=== PATIENT | female | born 1970 | race Caucasian/White ===

== ENCOUNTER 2017-10-06 11:47 | Inpatient (IN) ==
[2017-10-06] MEDS ORDERED: Sod Chloride 0.9% Inj 1,000 ML IV.SIG ONE (12:19)
[2017-10-06] MEDS ORDERED: Ketorolac Inj 30 MG/ML (IVP) Vial IV.PUSH ONE (12:19)
[2017-10-06] MEDS ORDERED: Morphine Inj 4 MG/ML Vial IV.PUSH ONE ×2 (12:19→15:36)
--- NOTE | 2017-10-06 13:19 | ED ---
HPI General Chief Complaint: Abdominal Pain Stated Complaint: Time Seen by Provider: 10/06/17 12:10 Source: patient Mode of arrival: ambulatory Limitations: no limitations History of Present Illness HPI narrative: 46-year-old female with a history of kidney stones and hepatitis C presents emergency department for evaluation of severe left flank pain that increased last night. She says that she went to [facility] yesterday and diagnosed with pyelonephritis and discharged with Keflex. She says that this episode of pain began several days ago. She states that she took her Keflex this morning and thought that the pain would go away but has only worsened. Says currently her pain is 10/10 and is localized to left lower abdominal region with radiation into the left flank and back. No palliative factors. Says the pain somewhat increases with laying on her right side. Described as dull and aching. Says this is the worst pain she has had from kidney stones. She has had a history of left fifth rib trip C approximately 4 years ago here at [facility]. Says she has had subjective fevers and developed a headache because of the pain. Denies nausea, vomiting or diarrhea. Her last bowel movement was yesterday which was normal. No melena, hematochezia, hematemesis. She does not take medications regularly. She denies other medical issues such as hypertension, cardiac or pulmonary issues. Does not drink alcohol. States she does use tobacco products. complaint: abdominal pain and flank pain Pain Consistency: constant Location: LLQ and L flank Severity: severe Migration to: no migration Relieving factors: nothing Exacerbating factors: movement Treatments prior to arrival: other (None use today. Try Tylenol and Motrin yesterday without relief.) Related Data Home Medications Medication Instructions Recorded Confirmed Keflex 500 mg PO TID 10/06/17 10/06/17 Allergies Allergy/AdvReac Type Severity Reaction Status Date / Time Sulfa (Sulfonamide Allergy Severe HIVES/SOB Verified 10/06/17 12:29 Antibiotics) *MDRO Multi-Drug Resistant Allergy Unknown Burning Uncoded 10/06/17 12:29 Organism Review of Systems Except as stated in HPI: all other systems reviewed are negative [facility] Medical History Medical History [place] disease (Acute) Hepatitis C (Acute) Kidney calculi (Acute) Tubal ligation status (Acute) Surgical History Surgical History H/O brain surgery (Acute) Family History Family History Mother Family history of acute myocardial infarction Social History Social History Second Hand Smoke Exposure: Yes Smoking Status: Current every day smoker Tobacco Type: Cigarettes How Often Do You Have a Drink Containing Alcohol: Never Recent Travel in [facility] within the Last 8 Weeks: No Recent Out of Country Travel within the Last 8 Weeks: No Substance Abuse Detail Marijuana: Substance Use Status: Active Route Used Substance Abuse: Inhalation Immunization History Tetanus Immunization: >5 Years Hx Influenza Vaccine This Season: No Exam Narrative Exam Narrative: GENERAL: Well-developed well-nourished in moderate distress, writhing about in bed SKIN: Focused skin assessment warm/dry. HEAD: Atraumatic. Normocephalic. EYES: Pupils equal and round. No scleral icterus. No injection or drainage. ENT: No nasal bleeding or discharge. Mucous membranes pink and moist. NECK: Trachea midline. No JVD. CARDIOVASCULAR: Regular rate and rhythm. No murmur appreciated. RESPIRATORY: No accessory muscle use. Clear to auscultation. Breath sounds equal bilaterally. GASTROINTESTINAL: Abdomen soft, mildly tender to palpation in the left flank region, nondistended, no organomegaly noted. No CVA tenderness. Normoactive bowel sounds. No rebound tenderness MUSCULOSKELETAL: No obvious deformities. No clubbing. No cyanosis. No edema. Homans sign negative bilaterally NEUROLOGICAL: Awake and alert. No obvious cranial nerve deficits. Motor grossly within normal limits. Normal speech. PSYCHIATRIC: Appropriate mood and affect; insight and judgment normal. Course Initial Documented Vital Signs Temperature 99.9 F H 10/06/17 11:50 Pulse Rate 115 H 10/06/17 11:50 Respiratory Rate 16 10/06/17 11:50 Blood Pressure 143/97 H 10/06/17 11:50 Pulse Oximetry 96 10/06/17 11:50 Last Documented Vital Signs Temperature 98.7 F 10/07/17 00:10 Pulse Rate 80 10/07/17 04:00 Respiratory Rate 18 10/07/17 00:10 Blood Pressure 111/59 L 10/07/17 00:10 Pulse Oximetry 98 10/07/17 00:10 Medical Decision Making MDM Narrative Medical decision making narrative: 46-year-old female with a history of kidney stones and hepatitis C presents emergency department for evaluation of left sided abdominal pain that worsened last night. Patient says that she was treated yesterday for presumed hydronephrosis or pyelonephritis and is taking 2 doses of medication. Says last night the pain worsened and believes the worst pain she has had regarding her kidney stones. Her vital signs demonstrated tachycardia with mildly elevated temperature. Patient was in acute pain and indicated pain in the left abdominal area. Labs and imaging studies ordered. Toradol and morphine administered for pain. Her pain decreased to 5/10 with this medication. Her labs are significant for leukocytosis of 24.4 with a left shift, urine consistent with urinary tract infection versus nephrolithiasis. CT shows "there is some minimal induration of the fat in the left perinephric space without evidence of calcified stones or hydronephrosis. Otherwise negative CT abdomen pelvis with contrast." Patient does not have a primary care physician and does not have insurance. I am concerned about follow-up for her. There may be the beginning of worsening pyelonephritis. Additional dose of morphine administered for pain control. Rocephin administered. I spoke with Dr. Brenner who agreed to the admission. Differential Diagnosis Differential Diagnosis: Pyelonephritis, nephrolithiasis, hydronephrosis Lab Data Result diagrams: 10/06/17 12:50 10/06/17 12:50 Lab Results 10/06/17 10/06/17 10/06/17 Range/Units 12:50 12:50 13:45 WBC 24.4 H (4.0-11.0) th/mm3 RBC 4.42 (4.00-5.30) mil/mm3 Hgb 15.5 H (11.6-15.3) gm/dL Hct 44.1 (35.0-46.0) % MCV 99.6 (80.0-100.0) fL MCH 35.1 H (27.0-34.0) pg MCHC 35.2 (32.0-36.0) % RDW 13.6 (11.6-17.2) % Plt Count 267 (150-450) th/mm3 MPV 9.8 (7.0-11.0) fL Neut % (Auto) 80.6 H (16.0-70.0) % Lymph % (Auto) 11.1 (9.0-44.0) % [place] % (Auto) 8.0 (0.0-8.0) % Eos % (Auto) 0.1 (0.0-4.0) % Baso % (Auto) 0.2 (0.0-2.0) % Neut # (Auto) 19.7 H (1.8-7.7) th/mm3 Lymph # (Auto) 2.7 (1.0-4.8) th/mm3 [place] # (Auto) 2.0 H (0.0-0.9) th/mm3 Eos # (Auto) 0.0 (0.0-0.4) th/mm3 Baso # (Auto) 0.0 (0.0-0.2) th/mm3 WBC Differential . Differential Comment Auto diff final Sodium 136 (136-145) meq/L Potassium 4.2 (3.5-5.1) meq/L Chloride 106 (98-107) meq/L Carbon Dioxide 23.6 (21.0-32.0) meq/L Anion Gap 6 (5-15) meq/L BUN 11 (7-18) mg/dL Creatinine 0.97 (0.50-1.00) mg/dL Estimated GFR 62 L (>89) mL/min Random Glucose 92 (74-106) mg/dL Lactic Acid (0.4-2.0) mmol/L Calcium 9.3 (8.5-10.1) mg/dL Total Bilirubin 0.9 (0.2-1.0) mg/dL AST 34 (15-37) U/L ALT 61 H (10-53) U/L Alkaline Phosphatase 98 (45-117) U/L Total Protein 8.5 H (6.4-8.2) g/dL Albumin 3.6 (3.4-5.0) g/dL Lipase 49 L (73-393) U/L Urine Color Yellow (Yellw/Straw) Urine Clarity Cloudy H (Clear) Urine pH 5.0 (5.0-8.5) Ur Specific [place] 1.015 (1.002-1.035) Urine Protein 100 H (Neg-Trace) mg/dL Urine Glucose (UA) Negative (Negative) mg/dL Urine Ketones Trace H (Negative) mg/dL Urine Occult Blood Moderate H (Negative) Urine Nitrate Negative (Negative) Urine Bilirubin Negative (Negative) Urine Urobilinogen 2.0 H (Less than 2) mg/dL Ur Leukocyte Esterase Large H (Negative) Urine RBC 17 H (0-3) /hpf Urine WBC 103 H (0-5) /hpf Ur Squamous Epith Cells 9 (0-5) /hpf Urine Bacteria Occasional H (None) /hpf Urine Mucus Few H (Occasional) /lpf Micro UA Comment Culture indicated Urine Culture Comments Culture indicated 10/06/17 Range/Units 18:20 WBC (4.0-11.0) th/mm3 RBC (4.00-5.30) mil/mm3 Hgb (11.6-15.3) gm/dL Hct (35.0-46.0) % MCV (80.0-100.0) fL MCH (27.0-34.0) pg MCHC (32.0-36.0) % RDW (11.6-17.2) % Plt Count (150-450) th/mm3 MPV (7.0-11.0) fL Neut % (Auto) (16.0-70.0) % Lymph % (Auto) (9.0-44.0) % [place] % (Auto) (0.0-8.0) % Eos % (Auto) (0.0-4.0) % Baso % (Auto) (0.0-2.0) % Neut # (Auto) (1.8-7.7) th/mm3 Lymph # (Auto) (1.0-4.8) th/mm3 [place] # (Auto) (0.0-0.9) th/mm3 Eos # (Auto) (0.0-0.4) th/mm3 Baso # (Auto) (0.0-0.2) th/mm3 WBC Differential Differential Comment Sodium (136-145) meq/L Potassium (3.5-5.1) meq/L Chloride (98-107) meq/L Carbon Dioxide (21.0-32.0) meq/L Anion Gap (5-15) meq/L BUN (7-18) mg/dL Creatinine (0.50-1.00) mg/dL Estimated GFR (>89) mL/min Random Glucose (74-106) mg/dL Lactic Acid 2.0 (0.4-2.0) mmol/L Calcium (8.5-10.1) mg/dL Total Bilirubin (0.2-1.0) mg/dL AST (15-37) U/L ALT (10-53) U/L Alkaline Phosphatase (45-117) U/L Total Protein (6.4-8.2) g/dL Albumin (3.4-5.0) g/dL Lipase (73-393) U/L Urine Color (Yellw/Straw) Urine Clarity (Clear) Urine pH (5.0-8.5) Ur Specific Natalia (1.002-1.035) Urine Protein (Neg-Trace) mg/dL Urine Glucose (UA) (Negative) mg/dL Urine Ketones (Negative) mg/dL Urine Occult Blood (Negative) Urine Nitrate (Negative) Urine Bilirubin (Negative) Urine Urobilinogen (Less than 2) mg/dL Ur Leukocyte Esterase (Negative) Urine RBC (0-3) /hpf Urine WBC (0-5) /hpf Ur Squamous Epith Cells (0-5) /hpf Urine Bacteria (None) /hpf Urine Mucus (Occasional) /lpf Micro UA Comment Urine Culture Comments Imaging Data Radiologist's impression: Abdomen/Pelvis CT 10/06/17 12:19 CONCLUSION: 1. There is some minimal induration of the fat in the left perinephric space without evidence of calcified stones or hydronephrosis. 2. Otherwise negative CT abdomen/pelvis with contrast. Discharge Plan Discharge Disposition Patient Disposition: 30 Still Patient Discharge Condition Condition: Stable Discharge Details Diagnosis: Pyelonephritis, Abdominal pain Physicians Team ED Provider: Naomy Asif ED Midlevel Provider: Ana Tay Primary Care Provider: Primary Care Luly Villarreal Attending Provider: Hu Valerio Status ED Status: Left Department Discharge Information Discharge Date/Time: 10/06/17 17:35
[2017-10-06 13:28] LABS: Baso % (Auto) 0.2 % (0.0-2.0); Eos % (Auto) 0.1 % (0.0-4.0); Hematocrit 44.1 % (35.0-46.0); Hemoglobin 15.5 gm/dL (11.6-15.3); Lymph # (Auto) 2.7 th/mm3 (1.0-4.8); Lymph % (Auto) 11.1 % (9.0-44.0); Mean Corpuscular HGB Conc 35.2 % (32.0-36.0); Mean Corpuscular Hemoglobin 35.1 pg (27.0-34.0); Mean Corpuscular Volume 99.6 fL (80.0-100.0); Mean Platelet Volume 9.8 fL (7.0-11.0); Neut # (Auto) 19.7 th/mm3 (1.8-7.7); Neut % (Auto) 80.6 % (16.0-70.0); Platelet Count 267 th/mm3 (150-450); Red Blood Count 4.42 mil/mm3 (4.00-5.30); Red Cell Distribution Width 13.6 % (11.6-17.2); White Blood Count 24.4 th/mm3 (4.0-11.0)
[2017-10-06 13:50] LABS: Alkaline Phosphatase 98 U/L (45-117); Total Protein 8.5 g/dL (6.4-8.2)
[2017-10-06 14:26] LABS: Alanine Aminotransferase 61 U/L (10-53); Albumin 3.6 g/dL (3.4-5.0); Anion Gap 6 meq/L (5-15); Aspartate Aminotransferase 34 U/L (15-37); Blood Urea Nitrogen 11 mg/dL (7-18); Calcium 9.3 mg/dL (8.5-10.1); Carbon Dioxide 23.6 meq/L (21.0-32.0); Chloride 106 meq/L (98-107); Glomerular Filtration Rate 62 mL/min (>89); Glucose,Random 92 mg/dL (74-106); Lipase 49 U/L (73-393); Potassium 4.2 meq/L (3.5-5.1); Sodium 136 meq/L (136-145)
[2017-10-06 14:35] LABS: Bacteria,Urine Occasional /hpf; Bilirubin,Urine Negative (Negative); Clarity,Urine Cloudy (Clear); Color,Urine Yellow (Yellw/Straw); Glucose,Urine (UA) Negative (Negative); Leukocyte Esterase,Urine Large (Negative); Mucus,Urine Few /lpf (Occasional); Nitrite,Urine Negative (Negative); Specific Gravity,Urine 1.015 (1.002-1.035); Squamous Epithelial Cell,Urine 9 /hpf (0-5)
--- NOTE | 2017-10-06 15:26 | CT ---
EXAM DATE: 10/06/2017 3:21 PM EDT AGE/SEX: 46 years / Female INDICATIONS: Abdominal pain, history of kidney stones. CLINICAL DATA: This is the patient's initial encounter. Patient reports that signs and symptoms have been present for 1 day and indicates a pain score of 6/10. MEDICAL/SURGICAL HISTORY: Hepatitis C. Renal calculi. Anthony disease Tubal ligation. ORAL CONTRAST: No oral contrast ingested. RADIATION DOSE: 8.17 CTDI (mGy) COMPARISON: No prior exams available for comparison. TECHNIQUE: Multiple contiguous axial images were obtained through the abdomen and pelvis following b olus infusion of 95 ml Omnipaque 350 (iohexol) nonionic water-soluble contrast as a single exam dos e. No oral contrast ingested. Using automated exposure control and adjustment of the mA and/or kV ac cording to patient size, radiation dose was kept as low as reasonably achievable to obtain optimal di agnostic quality images. DICOM format image data is available electronically for review and comparis on. FINDINGS: Lower Lungs: Mild basilar atelectasis left lower lung. Liver: The liver has a homogeneous density without space-occupying lesion. There is no dilation of th e biliary tree. No calcified gallstones. Spleen: Homogeneous density without enlargement. Pancreas: Unremarkable without mass or calcification. Kidneys: Normal in size and shape. No evidence of mass or hydronephrosis. 12 mm exophytic cyst midpo le left kidney. No calcified stones in either kidney. There is some minimal induration of the fat in the left perinephric space. Adrenal Glands: Unremarkable. Aorta: The aorta and proximal iliac vessels are grossly unremarkable without aneurysmal dilation. Bowel/Mesentery: The bowel loops are grossly unremarkable. The cecum and sigmoid colon have a normal configuration. Abdominal Wall: Intact. Retroperitoneum: No evidence of adenopathy in the retrocrural, para-aortic, or deep pelvic regions. Bladder: Contours are smooth. No calcifications within the lumen. Reproductive Organs: No abnormal masses or calcifications seen. Inguinal: The inguinal region is unremarkable without evidence of adenopathy. Bony Structures: Unremarkable. CONCLUSION: 1. There is some minimal induration of the fat in the left perinephric space without evidence of or[place] cified stones or hydronephrosis. 2. Otherwise negative CT abdomen/pelvis with contrast. Electronically signed by: Brian Donahue MD 10/06/2017 3:25 PM EDT
[2017-10-06] MEDS ORDERED: Bisacodyl 10 MG Supp RECTAL PRN (16:17)
[2017-10-06] MEDS ORDERED: Naloxone Inj 0.4 MG/ML Vial IV.PUSH PRN (16:19)
[2017-10-06] MEDS ORDERED: Acetaminophen 325 MG Tablet PO PRN (16:19)
--- NOTE | 2017-10-06 17:33 | P.HPIM ---
History of Present Illness Primary Care Physician: No Primary Care Physician Chief Complaint: Left flank pain and dysuria History of Present Illness: 46-year-old white female with a history of nephrolithiasis presents to the emergency room with worsening 2 day history of left flank pain with radiation towards her left lower abdomen along with symptoms of dysuria. She also reports associated chills or fever. Apparently, patient stated that she was seen at [facility] 2 days ago for the similar symptoms and was prescribed outpatient Keflex which she took 3 doses of this. Despite taking the antibiotics she continues to have persistent fevers and chills along with symptoms of worsening left back and flank pain in which she describes as a sharp stabbing pain with a pain intensity of a 10 out of 10. She also reports symptoms of dysuria. She reports also seeing some hematuria and initially had thought this was kidney stones. She has had previous lithotripsies done in the past. She denies any associated nausea or vomiting. She denies any associated chills or fever. She has not had any unusual vaginal discharge Inpatient Certification: I certify that the inpatient services were ordered in accordance with Medicare regulations governing the order. This includes certification that hospital inpatient services are reasonable and necessary and in the case of services not specified as inpatient-only under 42 CFR 419.22(n), that they are appropriately provided as inpatient services in accordance to with the 2-midnight benchmark under 43 CFR 412.3(e) Estimated Total Length of Stay (Days): 2 Plans for Post Hospital Care: Home Review of Systems All other systems reviewed negative except as stated in HPI [facility] - History History Provided By: Patient - Medical History Medical History: Medical History (Last Reviewed 10/06/17 @ 17:24 by Amber Brenner MD) Anthony disease Hepatitis C Kidney calculi Tubal ligation status - Surgical History Surgical History: Surgical History (Last Updated 10/06/17 @ 17:26 by Amber Brenner MD) H/O brain surgery - Family History Family History: Family History (Last Updated 10/06/17 @ 17:27 by Amber Brenner MD) Mother Family history of acute myocardial infarction - Tobacco History Second Hand Smoke Exposure: Yes Tobacco Use In Past 30 Days: Yes Smoking Status: Current every day smoker Tobacco Type: Cigarettes - Alcohol History How Often Do You Have a Drink Containing Alcohol: Never - Substance Use Type Marijuana Status: Active Route Used: Inhalation - Travel History Recent Travel in the [place] Within the Last 8 Weeks: No Recent Travel Out of the Country Within the Last 8 Weeks: No - Immunization History Tetanus Immunization: >5 Years Hx Influenza Vaccine This Season: No Medications and Allergies Active Medications: Active Medications Acetaminophen (Tylenol) 650 mg PO Q6HR PRN PRN Reason: PAIN SCALE 1 TO 2 Hydrocodone Bitart/Acetaminophen ([place] 5/325) 1 tab PO Q4H PRN PRN Reason: PAIN SCALE 3 TO 5 Last Admin: 10/06/17 16:37 Dose: 1 tab Al Hydroxide/Mg Hydroxide (Milk Of Magnesia Liq) 30 ml PO Q12H PRN PRN Reason: Mild Constipation Bisacodyl (Dulcolax Supp) 10 mg RECTAL DAILY PRN PRN Reason: SEVERE CONSITIPATION Lactated Ringer's (Lr 1000 Ml Inj) 1,000 mls @ 100 mls/hr IV.CONT .Q10H JESSIKA Last Admin: 10/06/17 17:05 Dose: 100 mls/hr Ceftriaxone Sodium 1,000 mg/ (Sodium Chloride) 100 mls @ 200 mls/hr IV.SIG Q24H JESSIKA Ketorolac Tromethamine (Toradol Inj) 30 mg IV.PUSH Q6H PRN PRN Reason: PAIN 6-10;IF UNABLE TO TAKE PO Stop: 10/11/17 16:18 Lactulose (Lactulose Liq) 30 ml PO DAILY PRN PRN Reason: SEVERE CONSITIPATION Naloxone HCl (Narcan Inj) 0.4 mg IV.PUSH UNSCH PRN PRN Reason: SEE LABEL COMMENTS Ondansetron HCl (Zofran Inj) 4 mg IV.PUSH Q6H PRN PRN Reason: NAUSEA OR VOMITING Sennosides (Senokot) 17.2 mg PO Q12H PRN PRN Reason: Moderate Constipation Sodium Chloride (Ns Flush) 2 ml IV.FLUSH PRN PRN PRN Reason: FLUSH AFTER USING IV ACCESS Sodium Chloride (Ns Flush) 2 ml IV.FLUSH PRN PRN PRN Reason: FLUSH AFTER USING IV ACCESS Allergies Allergy/AdvReac Type Severity Reaction Status Date / Time Sulfa (Sulfonamide Allergy Severe HIVES/SOB Verified 10/06/17 12:29 Antibiotics) *MDRO Multi-Drug Resistant Allergy Unknown Burning Uncoded 10/06/17 12:29 Organism Home Medications Medication Instructions Recorded Confirmed Type Keflex 500 mg PO TID 10/06/17 10/06/17 History Exam Vital signs: Vital Signs 10/06/17 11:50 10/06/17 16:55 Temperature 99.9 F H Pulse Rate 115 H 138 H Respiratory Rate 16 18 Blood Pressure 143/97 H 132/78 Pulse Oximetry 96 Intake & Output 10/05/17 10/06/17 10/06/17 18:59 06:59 18:59 Intake Total 1000 / 1000 Balance 1000 / 1000 Weight 79.379 kg Intake: IV 1000 / 1000 NS Inj 1,000 ML @ Wide Open IV. 1000 / 1000 SIG BOLUS ONE Rx#:[id number] Narrative: GENERAL: Well-nourished well-developed white female in no acute distress SKIN: Warm and dry. HEAD: Atraumatic. Normocephalic. EYES: Pupils equal and round. No scleral icterus. No injection or drainage. ENT: No nasal bleeding or discharge. Mucous membranes pink and moist. NECK: Trachea midline. No JVD. CARDIOVASCULAR: Regular rate and rhythm. RESPIRATORY: No accessory muscle use. Clear to auscultation. Breath sounds equal bilaterally. GASTROINTESTINAL: Abdomen soft, left flank and lower quadrant tenderness with left CVA tenderness, no rebound or guarding, nondistended. Hepatic and splenic margins not palpable. Normoactive bowel sounds MUSCULOSKELETAL: Extremities without clubbing, cyanosis, or edema. No obvious deformities. NEUROLOGICAL: Awake and alert to person place time and situation. No obvious cranial nerve deficits. Motor grossly within normal limits. Five out of 5 muscle strength in the arms and legs. Normal speech. PSYCHIATRIC: Appropriate mood and affect; insight and judgment normal. Results - Labs CBC & Chem 7: 10/06/17 12:50 10/06/17 12:50 Labs: Short CBC 10/06/17 Range/Units 12:50 WBC 24.4 H (4.0-11.0) th/mm3 Hgb 15.5 H (11.6-15.3) gm/dL Hct 44.1 (35.0-46.0) % Plt Count 267 (150-450) th/mm3 BMP 10/06/17 12:50 Sodium 136 Potassium 4.2 Chloride 106 Carbon Dioxide 23.6 BUN 11 Creatinine 0.97 Calcium 9.3 Liver Function 10/06/17 Range/Units 12:50 Total Bilirubin 0.9 (0.2-1.0) mg/dL AST 34 (15-37) U/L ALT 61 H (10-53) U/L Alkaline Phosphatase 98 (45-117) U/L Albumin 3.6 (3.4-5.0) g/dL Urine 10/06/17 Range/Units 13:45 Urine Color Yellow (Yellw/Straw) Urine Clarity Cloudy H (Clear) Urine pH 5.0 (5.0-8.5) Ur Specific [place] 1.015 (1.002-1.035) Urine Protein 100 H (Neg-Trace) mg/dL Urine Glucose (UA) Negative (Negative) mg/dL - Imaging Impressions Abdomen/Pelvis CT 10/06/17 12:19 CONCLUSION: 1. There is some minimal induration of the fat in the left perinephric space without evidence of calcified stones or hydronephrosis. 2. Otherwise negative CT abdomen/pelvis with contrast. Caprini VTE Risk Assessment Caprini VTE Risk Assessment: No/Low Risk (score <= 1) Caprini Risk Assessment Model: Point Value = 1 Point Value = 2 Point Value = 3 Point Value = 5 Age 41-60 Minor surgery BMI > 25 kg/m2 Swollen legs Varicose veins or History of unexplained or recurrent spontaneous Oral contraceptives or hormone replacement Sepsis (< 1 month) Serious lung disease, including pneumonia (< 1 month) Abnormal pulmonary function Acute myocardial infarction Congestive heart failure (< 1 month) History of inflammatory bowel disease Medical patient at bed rest Age 61-74 Arthroscopic surgery Major open surgery (> 45 min) Laparoscopic surgery (> 45 min) Malignancy Confined to bed (> 72 hours) Immobilizing plaster cast Central venous access Age >= 75 History of VTE Family history of VTE Factor V Leiden Prothrombin [id number] Lupus anticoagulant Anticardiolipin antibodies Elevated serum homocysteine Heparin-induced thrombocytopenia Other congenital or acquired thrombophilia Stroke (< 1 month) Elective arthroplasty Hip, pelvis, or leg fracture Acute spinal cord injury (< 1 month) Prophylaxis Regimen: Total Risk Factor Score Risk Level Prophylaxis Regimen 0-1 Low Early ambulation 2 Moderate Order ONE of the following: *Sequential Compression Device (SCD) *Heparin 5000 units SQ BID 3-4 Higher Order ONE of the following medications: *Heparin 5000 units SQ TID *Enoxaparin/Lovenox 40 mg SQ daily (WT < 150 kg, CrCl > 30 mL/min) *Enoxaparin/Lovenox 30 mg SQ daily (WT < 150 kg, CrCl > 10-29 mL/min) *Enoxaparin/Lovenox 30 mg SQ BID (WT < 150 kg, CrCl > 30 mL/min) AND/OR *Sequential Compression Device (SCD) 5 or more Highest Order ONE of the following medications: *Heparin 5000 units SQ TID (Preferred with Epidurals) *Enoxaparin/Lovenox 40 mg SQ daily (WT < 150 kg, CrCl > 30 mL/min) *Enoxaparin/Lovenox 30 mg SQ daily (WT < 150 kg, CrCl > 10-29 mL/min) *Enoxaparin/Lovenox 30 mg SQ BID (WT < 150 kg, CrCl > 30 mL/min) AND *Sequential Compression Device (SCD) Assessment and Plan - Plan 46-year-old white female with a history of nephrolithiasis presents with 2 day history of worsening left flank and back pain, dysuria, despite being on oral antibiotics. 1. Sepsis present on admission with acute pyelonephritis with failed outpatient antibiotic treatmentpatient presented with leukocytosis and tachycardia, admit the patient for IV fluid hydration supportive care, pain control and IV ceftriaxone and Pyridium. Will obtain blood cultures and lactic acid. Follow-up with final urine cultures and sensitivity 2. DVT prophylaxisNo mechanical or pharmaceutical VTE prophalaxis administered due to patient's low risk assessment of VTE. Encouraged ambulation.
[2017-10-06] MEDS: Ketorolac Inj 30 MG/ML (IVP) Vial IV.PUSH PRN (18:51)
[2017-10-06] MEDS: Morphine Inj 4 MG/ML Vial IV.PUSH PRN (22:04)
[2017-10-07] MEDS: Morphine Inj 4 MG/ML Vial IV.PUSH PRN ×5 (02:24→20:01)
[2017-10-07] MEDS: Ketorolac Inj 30 MG/ML (IVP) Vial IV.PUSH PRN ×3 (08:32→22:47)
[2017-10-07 09:33] LABS: Baso % (Auto) 0.3 % (0.0-2.0); Eos # (Auto) 0.1 th/mm3 (0.0-0.4); Eos % (Auto) 0.7 % (0.0-4.0); Hemoglobin 13.6 gm/dL (11.6-15.3); Lymph # (Auto) 1.6 th/mm3 (1.0-4.8); Lymph % (Auto) 14.1 % (9.0-44.0); Mean Corpuscular HGB Conc 33.9 % (32.0-36.0); Mean Corpuscular Hemoglobin 34.1 pg (27.0-34.0); Mean Corpuscular Volume 100.4 fL (80.0-100.0); Mean Platelet Volume 9.8 fL (7.0-11.0); Mono % (Auto) 8.8 % (0.0-8.0); Neut # (Auto) 8.6 th/mm3 (1.8-7.7); Neut % (Auto) 76.1 % (16.0-70.0); Platelet Count 240 th/mm3 (150-450); Red Blood Count 3.98 mil/mm3 (4.00-5.30); Red Cell Distribution Width 13.3 % (11.6-17.2); White Blood Count 11.3 th/mm3 (4.0-11.0)
[2017-10-07 09:35] LABS: Activated Partial Thrombo Time 27.8 sec (24.3-30.1); Prothrombin Time 9.9 sec (9.8-11.6)
--- NOTE | 2017-10-07 09:52 | P.PNIM ---
Subjective Interval history: Mrs. Colunga was afebrile overnight. She reports worsening abdominal pain which is now severe and radiating to her epigastric area and back. Patient is fearful she may "" due to severity of her pain. Patient states that she has not had pain this severe before but yesterday thought it felt similar to her prior ureteral stones/lithotripsy. Patient denies pain with bowel movements or urination. Her urine was dark in color but now is orange since taking Pyridium Physical Exam Vital signs: Vital Signs 10/06/17 11:50 10/06/17 16:55 10/06/17 17:20 Temperature 99.9 F H Pulse Rate 115 H 138 H Respiratory Rate 16 18 7 L Blood Pressure 143/97 H 132/78 Pulse Oximetry 96 10/06/17 17:52 10/06/17 20:00 10/06/17 20:22 Temperature 98.0 F 99.0 F Pulse Rate 83 88 88 Respiratory Rate 17 17 Blood Pressure 117/60 125/70 Pulse Oximetry 93 L 96 96 10/07/17 00:00 10/07/17 00:10 10/07/17 04:00 Temperature 98.7 F Pulse Rate 79 75 80 Respiratory Rate 18 Blood Pressure 111/59 L Pulse Oximetry 98 10/07/17 08:00 Temperature 99.5 F Pulse Rate 94 H Respiratory Rate 18 Blood Pressure 142/83 H Pulse Oximetry 94 L Intake & Output 10/06/17 10/07/17 10/07/17 18:59 06:59 18:59 Intake Total 1000 / 1000 1780 / 1780 Balance 1000 / 1000 1780 / 1780 Weight 79.379 kg 79 kg Intake: IV 1000 / 1000 1000 / 1000 LR 1000 mL Inj 1,000 ML @ 100 1000 / 1000 mls/hr IV.CONT .Q10H JESSIKA Rx#: [id number] NS Inj 1,000 ML @ Wide Open IV. 1000 / 1000 SIG BOLUS ONE Rx#:[id number] Oral 780 / 780 Other: # Voids 3 Narrative: Gen: anxious, in moderate pain Skin: Sweating CV: Tachycardic; regular rate Resp: CTAB Abd: Pain to palpation of epigastric area and bilateral upper quadrants. Back: L CVA tenderness EXT: Grossly normal ROM and motor function Neuro/PSYCH: Grossly normal CN. Grossly normal peripheral sensory/motor function. anxious Results - Labs CBC & Chem 7: 10/06/17 12:50 10/06/17 12:50 Laboratory Results - last 24 hr 10/06/17 10/06/17 10/06/17 12:50 12:50 13:45 WBC 24.4 H RBC 4.42 Hgb 15.5 H Hct 44.1 MCV 99.6 MCH 35.1 H MCHC 35.2 RDW 13.6 Plt Count 267 MPV 9.8 Neut % (Auto) 80.6 H Lymph % (Auto) 11.1 [place] % (Auto) 8.0 Eos % (Auto) 0.1 Baso % (Auto) 0.2 Neut # (Auto) 19.7 H Lymph # (Auto) 2.7 [place] # (Auto) 2.0 H Eos # (Auto) 0.0 Baso # (Auto) 0.0 WBC Differential . Differential Comment Auto diff final Sodium 136 Potassium 4.2 Chloride 106 Carbon Dioxide 23.6 Anion Gap 6 BUN 11 Creatinine 0.97 Estimated GFR 62 L Random Glucose 92 Lactic Acid Calcium 9.3 Total Bilirubin 0.9 AST 34 ALT 61 H Alkaline Phosphatase 98 Total Protein 8.5 H Albumin 3.6 Lipase 49 L Urine Color Yellow Urine Clarity Cloudy H Urine pH 5.0 Ur Specific [place] 1.015 Urine Protein 100 H Urine Glucose (UA) Negative Urine Ketones Trace H Urine Occult Blood Moderate H Urine Nitrate Negative Urine Bilirubin Negative Urine Urobilinogen 2.0 H Ur Leukocyte Esterase Large H Urine RBC 17 H Urine WBC 103 H Ur Squamous Epith Cells 9 Urine Bacteria Occasional H Urine Mucus Few H Micro UA Comment Culture indicated Urine Culture Comments Culture indicated 10/06/17 18:20 WBC RBC Hgb Hct MCV MCH MCHC RDW Plt Count MPV Neut % (Auto) Lymph % (Auto) [place] % (Auto) Eos % (Auto) Baso % (Auto) Neut # (Auto) Lymph # (Auto) [place] # (Auto) Eos # (Auto) Baso # (Auto) WBC Differential Differential Comment Sodium Potassium Chloride Carbon Dioxide Anion Gap BUN Creatinine Estimated GFR Random Glucose Lactic Acid 2.0 Calcium Total Bilirubin AST ALT Alkaline Phosphatase Total Protein Albumin Lipase Urine Color Urine Clarity Urine pH Ur Specific [place] Urine Protein Urine Glucose (UA) Urine Ketones Urine Occult Blood Urine Nitrate Urine Bilirubin Urine Urobilinogen Ur Leukocyte Esterase Urine RBC Urine WBC Ur Squamous Epith Cells Urine Bacteria Urine Mucus Micro UA Comment Urine Culture Comments - Imaging Impressions Abdomen/Pelvis CT 10/06/17 12:19 CONCLUSION: 1. There is some minimal induration of the fat in the left perinephric space without evidence of calcified stones or hydronephrosis. 2. Otherwise negative CT abdomen/pelvis with contrast. Assessment and Plan - Plan 46-year-old white female with a history of nephrolithiasis presented with 2 day history of worsening left flank and back pain, dysuria, despite being on oral antibiotics from Sepsis/UTI Impression: WBC 24K, HR 115 on admission. Suspect urinary source based on UA with large leukocytes, WBC 103, occ bacteria. PMH renal stones CT A/P on admission- no hydronephrosis. minimal induration of fat in L perinephric space. No evidence calcified stones or hydronephrosis 10/02- worsening pain, patient fearful of . Tachycardic on exam -Will check stat US to assess for acute hydronephrosis based on history -Continue IVF -Will give additional NS bolus -Will await pending CBC -Will broaden ABX to Zosyn until cultures obtained -Pain control -Will increase PRN Morphine for PA 6-10 to 4mg IV q4hrs -Continue Toradol q6hrs -Will repeat lactic acid DVT prophylaxisNo mechanical or pharmaceutical VTE prophalaxis administered due to patient's low risk assessment of VTE. Encouraged ambulation. Code Status: Full
[2017-10-07] MEDS ORDERED: Sod Chloride 0.9% Inj 1,000 ML IV.SIG ONE (09:53)
[2017-10-07 09:55] LABS: Calcium 8.6 mg/dL (8.5-10.1); Carbon Dioxide 22.6 meq/L (21.0-32.0); Potassium 3.9 meq/L (3.5-5.1)
--- NOTE | 2017-10-07 11:33 | US ---
EXAM DATE: 10/07/2017 11:29 AM EDT AGE/SEX: 46 years / Female INDICATIONS: Abnormal labs. CLINICAL DATA: This is the patient's initial encounter. Patient reports that signs and symptoms have been present for 1 day and indicates a pain score of 4/10. MEDICAL/SURGICAL HISTORY: Hepatitis C. 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 COMPARISON: [facility] [place], CT ABDOMEN & PELVIS W CONTRAST, 10/06/2017. . MEASUREMENTS: Liver:__ 21.5 cm. Common Bile Duct:___ 4mm. Right Kidney:___11.11 x 6.7 x 4.5 cm. Left Kidney:___13.1 x 5.5 x 6.0 cm. Spleen:___11.6 cm. FINDINGS: Liver: Increased echotexture without focal lesion or ductal dilation. Portal Vein: Hepatopedal flow seen in portal vein. Common Duct: No intraluminal mass or stone visualized. Gallbladder: The gallbladder appears decompressed with no evidence of cholelithiasis or wall thicke tana. There is no pericholecystic fluid. Pancreas: The visualized portions are within normal limits Right Kidney: Normal echotexture and cortical thickness. No mass or hydronephrosis. Left Kidney: Increased echotexture. No mass or hydronephrosis. Ascites: None Pleural Effusion: None Spleen: No focal lesion. Aorta: Non aneurysmal. IVC: Within normal limits Other: None. CONCLUSION: 1. The gallbladder is decompressed but otherwise unremarkable. 2. The liver is unremarkable in appearance with no focal lesion or ascites. Electronically signed by: Jeronimo Chris MD 10/07/2017 11:32 AM EDT
[2017-10-07] MEDS: Piperacil/Tazo 3.375 GM Premix 50 ML IV.SIG SCH ×2 (11:40→18:27)
[2017-10-08] MEDS: Piperacil/Tazo 3.375 GM Premix 50 ML IV.SIG SCH ×3 (03:04→18:07)
[2017-10-08 08:37] LABS: Baso % (Auto) 0.4 % (0.0-2.0); Eos # (Auto) 0.2 th/mm3 (0.0-0.4); Eos % (Auto) 2.4 % (0.0-4.0); Hematocrit 40.4 % (35.0-46.0); Hemoglobin 13.7 gm/dL (11.6-15.3); Lymph # (Auto) 1.7 th/mm3 (1.0-4.8); Mean Corpuscular HGB Conc 33.9 % (32.0-36.0); Mean Corpuscular Hemoglobin 33.8 pg (27.0-34.0); Mean Corpuscular Volume 99.8 fL (80.0-100.0); Mean Platelet Volume 9.7 fL (7.0-11.0); Mono # (Auto) 0.8 th/mm3 (0.0-0.9); Neut # (Auto) 5.7 th/mm3 (1.8-7.7); Neut % (Auto) 68.2 % (16.0-70.0); Platelet Count 265 th/mm3 (150-450); Red Blood Count 4.05 mil/mm3 (4.00-5.30); Red Cell Distribution Width 13.1 % (11.6-17.2); White Blood Count 8.4 th/mm3 (4.0-11.0)
[2017-10-08 08:59] LABS: Alanine Aminotransferase 80 U/L (10-53); Albumin 2.8 g/dL (3.4-5.0); Anion Gap 8 meq/L (5-15); Aspartate Aminotransferase 74 U/L (15-37); Blood Urea Nitrogen 11 mg/dL (7-18); Calcium 8.8 mg/dL (8.5-10.1); Chloride 108 meq/L (98-107); Glomerular Filtration Rate 69 mL/min (>89); Glucose,Random 68 mg/dL (74-106); Potassium 3.8 meq/L (3.5-5.1); Sodium 141 meq/L (136-145)
[2017-10-08] MEDS: Morphine Inj 4 MG/ML Vial IV.PUSH PRN ×2 (08:59→19:51)
--- NOTE | 2017-10-08 09:16 | P.PNIM ---
Subjective Interval history: Mrs. Colunga was afebrile with stable VS overnight. Patient reports persistent back pain and that she is sweating. Patient also reports continued epigastric pain. Patient clarifies that she has been getting epigastric pain intermittently for the past several months even prior to the onset of pyelonephritis; it is associated with eating and sometimes radiates to her shoulder. Physical Exam Vital signs: Vital Signs 10/07/17 09:30 10/07/17 12:00 10/07/17 16:00 Temperature 97.1 F L 97.6 F Pulse Rate 77 75 Respiratory Rate 10 L 17 18 Blood Pressure 116/57 L 115/70 Pulse Oximetry 96 93 L 10/07/17 16:58 10/07/17 20:00 10/07/17 20:52 Temperature 97.7 F Pulse Rate 68 Respiratory Rate 3 L 20 Blood Pressure 114/68 Pulse Oximetry 96 96 10/08/17 00:24 10/08/17 03:53 10/08/17 07:58 Temperature 98.3 F Pulse Rate 71 Respiratory Rate 18 18 18 Blood Pressure 119/77 Pulse Oximetry 97 Intake & Output 10/07/17 10/08/17 10/08/17 18:59 06:59 18:59 Intake Total 1550 / 1550 1760 / 1760 1000 / 1000 Balance 1550 / 1550 1760 / 1760 1000 / 1000 Weight 79 kg Intake: IV 1050 / 1050 1000 / 1000 1000 / 1000 LR 1000 mL Inj 1,000 ML @ 100 1000 / 1000 1000 / 1000 1000 / 1000 mls/hr IV.CONT .Q10H JESSIKA Rx#: [id number] Zosyn 3.375 GM Premix 50 ML @ 50 / 50 100 mls/hr IV.SIG Q8H JESSIKA Rx#: [id number] Oral 500 / 500 760 / 760 Other: # Voids 4 3 # Bowel Movements 1 Narrative: Gen: no acute distress Skin: no visible lesions CV: Regular rate and rhythm; grossly normal perfusion Resp: CTAB, normal rate Abd: Pain to palpation of epigastric area. Normal BS Back: Bilateral CVA tenderness EXT: Grossly normal ROM and motor function Neuro/PSYCH: Grossly normal CN. Grossly normal peripheral sensory/motor function. still anxious about epigastric pain Results - Labs CBC & Chem 7: 10/08/17 07:23 10/08/17 07:23 Laboratory Results - last 24 hr 10/07/17 10/07/17 10/07/17 08:30 08:30 08:30 WBC 11.3 H D RBC 3.98 L Hgb 13.6 Hct 40.0 MCV 100.4 H MCH 34.1 H MCHC 33.9 RDW 13.3 Plt Count 240 MPV 9.8 Neut % (Auto) 76.1 H Lymph % (Auto) 14.1 [place] % (Auto) 8.8 H Eos % (Auto) 0.7 Baso % (Auto) 0.3 Neut # (Auto) 8.6 H Lymph # (Auto) 1.6 [place] # (Auto) 1.0 H Eos # (Auto) 0.1 Baso # (Auto) 0.0 WBC Differential . Differential Comment Auto diff final PT 9.9 INR 1.0 APTT 27.8 Sodium 139 Potassium 3.9 Chloride 108 H Carbon Dioxide 22.6 Anion Gap 8 BUN 11 Creatinine 0.79 Estimated GFR 78 L Random Glucose 82 Lactic Acid Calcium 8.6 AST ALT Albumin 10/07/17 10/08/17 10/08/17 14:04 07:23 07:23 WBC 8.4 RBC 4.05 Hgb 13.7 Hct 40.4 MCV 99.8 MCH 33.8 MCHC 33.9 RDW 13.1 Plt Count 265 MPV 9.7 Neut % (Auto) 68.2 Lymph % (Auto) 20.0 [place] % (Auto) 9.0 H Eos % (Auto) 2.4 Baso % (Auto) 0.4 Neut # (Auto) 5.7 Lymph # (Auto) 1.7 [place] # (Auto) 0.8 Eos # (Auto) 0.2 Baso # (Auto) 0.0 WBC Differential . Differential Comment Auto diff final PT INR APTT Sodium 141 Potassium 3.8 Chloride 108 H Carbon Dioxide 25.0 Anion Gap 8 BUN 11 Creatinine 0.88 Estimated GFR 69 L Random Glucose 68 L Lactic Acid 0.8 Calcium 8.8 AST 74 H ALT 80 H Albumin 2.8 L D Microbiology 10/06/17 18:15 Blood - Peripheral Aerobic Blood Culture - Preliminary No growth in 1 day 10/06/17 18:15 Blood - Peripheral Anaerobic Blood Culture - Preliminary No growth in 1 day 10/06/17 18:20 Blood - Peripheral Aerobic Blood Culture - Preliminary No growth in 1 day 10/06/17 18:20 Blood - Peripheral Anaerobic Blood Culture - Preliminary No growth in 1 day 10/06/17 13:45 Clean Catch Urine Urine Culture - Preliminary No growth in 24 hours - Imaging Impressions Abdomen Ultrasound 10/07/17 09:38 CONCLUSION: 1. The gallbladder is decompressed but otherwise unremarkable. 2. The liver is unremarkable in appearance with no focal lesion or ascites. Assessment and Plan - Plan 46-year-old white female with a history of nephrolithiasis presented with 2 day history of worsening left flank and back pain, dysuria, despite being on oral antibiotics from Sepsis/UTI Impression: WBC 24K, HR 115 on admission. Suspect urinary source based on UA with large leukocytes, WBC 103, occ bacteria. PMH renal stones Labs: WBC- 24.3-> 11.3-> 8.4 Lactic acid- 2-> 0.8 CT A/P on admission- no hydronephrosis. minimal induration of fat in L perinephric space. No evidence calcified stones or hydronephrosis 10/02- worsening pain, patient fearful of . Tachycardic on exam US abdomen unremarkable -Continue IVF at 100ml/hr -Continue Zosyn until cultures resulted -Continue to monitor labs -Pain control -Continue PRN [place], Morphine pain scale -Will stop Toradol since concern for gastritis pain Epigastric pain Impression: further history- chronic/intermittent but acutely worse recently. Lipase wnl, mild LFT elevations. suspect gastritis but no alarm features (age < 50, no reported weight loss, bleeding, dysphagia, vomiting, normal abd imaging) -Will stop Toradol -Will give IV PPI while inpatient and plan for GI; will consult if worsening -Will continue to monitor CMP DVT prophylaxisSCDs Code Status: Full code
[2017-10-08 09:27] LABS: Alkaline Phosphatase 144 U/L (45-117); Total Protein 7.4 g/dL (6.4-8.2)
[2017-10-08] MEDS: Pantoprazole Inj 40 MG Vial IV.PUSH SCH (10:50)
[2017-10-09] MEDS: Morphine Inj 4 MG/ML Vial IV.PUSH PRN ×2 (00:13→04:29)
[2017-10-09] MEDS: Piperacil/Tazo 3.375 GM Premix 50 ML IV.SIG SCH ×2 (03:01→10:11)
[2017-10-09 06:39] LABS: Baso % (Auto) 0.6 % (0.0-2.0); Eos # (Auto) 0.2 th/mm3 (0.0-0.4); Eos % (Auto) 2.1 % (0.0-4.0); Hematocrit 35.3 % (35.0-46.0); Lymph # (Auto) 1.8 th/mm3 (1.0-4.8); Lymph % (Auto) 22.5 % (9.0-44.0); Mean Corpuscular HGB Conc 34.1 % (32.0-36.0); Mean Corpuscular Hemoglobin 33.6 pg (27.0-34.0); Mean Corpuscular Volume 98.4 fL (80.0-100.0); Mono # (Auto) 0.9 th/mm3 (0.0-0.9); Mono % (Auto) 11.7 % (0.0-8.0); Neut # (Auto) 5.1 th/mm3 (1.8-7.7); Neut % (Auto) 63.1 % (16.0-70.0); Platelet Count 288 th/mm3 (150-450); Red Blood Count 3.58 mil/mm3 (4.00-5.30); Red Cell Distribution Width 13.3 % (11.6-17.2); White Blood Count 8.1 th/mm3 (4.0-11.0)
[2017-10-09 06:54] LABS: Calcium 8.5 mg/dL (8.5-10.1); Carbon Dioxide 26.3 meq/L (21.0-32.0); Potassium 3.8 meq/L (3.5-5.1)
--- NOTE | 2017-10-09 08:02 | XR ---
EXAM DATE: 10/09/2017 7:48 AM EDT AGE/SEX: 46 years / Female INDICATIONS: Cough. Patient states no complaints. CLINICAL DATA: This is the patient's subsequent encounter. Patient reports that signs and symptoms h ave been present for 3 days and indicates a pain score of 0/10. MEDICAL/SURGICAL HISTORY: . UTI None. COMPARISON: No prior exams available for comparison. FINDINGS: Bibasilar atelectasis and/or infiltrates are noted. The heart is normal. The mediastinal structures a re normal. CONCLUSION: Bibasilar atelectasis and/or infiltrates. Clinical correlation is recommended. Electronically signed by: Julien Shahid MD 10/09/2017 8:01 AM EDT
[2017-10-09] MEDS: Pantoprazole Inj 40 MG Vial IV.PUSH SCH (10:10)
[2017-10-09 12:53] VITALS: BP 131/88; PULSE 72; TEMP 97.7; O2SAT 93
[2017-10-09 13:01] LABS: Alanine Aminotransferase 81 U/L (10-53); Albumin 2.9 g/dL (3.4-5.0); Aspartate Aminotransferase 52 U/L (15-37); Total Protein 7.3 g/dL (6.4-8.2)
[2017-10-09 13:02] LABS: Alkaline Phosphatase 154 U/L (45-117)
[2017-10-09 14:41] VITALS: RESP 15
--- NOTE | 2017-10-09 15:13 | P.PNIM ---
Subjective Interval history: Mrs. Colunga was afebrile with stable vital signs overnight. She reports continued epigastric pain but feels that it is much improved. No flank pain. Patient plans to establish with PCP and plan for GI follow-up. She agrees to continuing antibiotics at home Physical Exam Vital signs: Vital Signs 10/08/17 16:00 10/08/17 17:59 10/08/17 20:00 Temperature 97.8 F 97.7 F Pulse Rate 81 76 Respiratory Rate 18 16 17 Blood Pressure 158/96 H 125/65 Pulse Oximetry 92 L 94 L 10/09/17 00:00 10/09/17 08:00 10/09/17 10:18 Temperature 97.8 F 97.9 F Pulse Rate 68 86 Respiratory Rate 17 18 16 Blood Pressure 162/69 H 140/76 Pulse Oximetry 94 L 92 L 10/09/17 12:00 10/09/17 14:39 Temperature 97.7 F Pulse Rate 72 Respiratory Rate 20 15 Blood Pressure 131/88 Pulse Oximetry 93 L Intake & Output 10/08/17 10/09/17 10/09/17 18:59 06:59 18:59 Intake Total 2740 / 2740 1340 / 1340 Balance 2740 / 2740 1340 / 1340 Intake: IV 2100 / 2100 1100 / 1100 LR 1000 mL Inj 1,000 ML @ 100 2000 / 2000 1000 / 1000 mls/hr IV.CONT .Q10H JESSIKA Rx#: [id number] Zosyn 3.375 GM Premix 50 ML @ 100 / 100 100 / 100 100 mls/hr IV.SIG Q8H JESSIKA Rx#: [id number] Oral 640 / 640 240 / 240 Other: # Voids 4 2 # Bowel Movements 1 Narrative: Gen: no acute distress Skin: no visible lesions CV: Regular rate and rhythm; grossly normal perfusion Resp: CTAB, normal rate Abd: mild pain to palpation of epigastric area. Normal BS Back: Bilateral CVA tenderness EXT: Grossly normal ROM and motor function Neuro/PSYCH: Grossly normal CN. Grossly normal peripheral sensory/motor function. Results - Labs CBC & Chem 7: 10/09/17 06:20 10/09/17 06:20 Laboratory Results - last 24 hr 10/09/17 10/09/17 10/09/17 06:20 06:20 12:10 WBC 8.1 RBC 3.58 L Hgb 12.0 Hct 35.3 MCV 98.4 MCH 33.6 MCHC 34.1 RDW 13.3 Plt Count 288 MPV 9.0 Neut % (Auto) 63.1 Lymph % (Auto) 22.5 [place] % (Auto) 11.7 H Eos % (Auto) 2.1 Baso % (Auto) 0.6 Neut # (Auto) 5.1 Lymph # (Auto) 1.8 [place] # (Auto) 0.9 Eos # (Auto) 0.2 Baso # (Auto) 0.0 WBC Differential . Differential Comment Auto diff final Sodium 141 Potassium 3.8 Chloride 109 H Carbon Dioxide 26.3 Anion Gap 6 BUN 5 L Creatinine 0.74 Estimated GFR 84 L Random Glucose 78 Calcium 8.5 Total Bilirubin 0.4 Direct Bilirubin Less than 0.1 Indirect Bilirubin 0.3 AST 52 H ALT 81 H Alkaline Phosphatase 154 H Total Protein 7.3 Albumin 2.9 L Microbiology 10/06/17 18:15 Blood - Peripheral Aerobic Blood Culture - Preliminary No growth in 3 days 10/06/17 18:15 Blood - Peripheral Anaerobic Blood Culture - Preliminary No growth in 3 days 10/06/17 18:20 Blood - Peripheral Aerobic Blood Culture - Preliminary No growth in 3 days 10/06/17 18:20 Blood - Peripheral Anaerobic Blood Culture - Preliminary No growth in 3 days - Imaging Impressions Chest X-Ray 10/09/17 07:00 CONCLUSION: Bibasilar atelectasis and/or infiltrates. Clinical correlation is recommended. Assessment and Plan - Plan 46-year-old white female with a history of nephrolithiasis presented with 2 day history of worsening left flank and back pain, dysuria, despite being on oral antibiotics from UTI Impression: Initial concern for sepsis WBC 24K, HR 115 on admission. Suspect urinary source based on UA with large leukocytes, WBC 103, occ bacteria. [facility] renal stones Labs: WBC- 24.3-> 11.3-> 8.1 Lactic acid- 2-> 0.8 CT A/P on admission- no hydronephrosis. minimal induration of fat in L perinephric space. No evidence calcified stones or hydronephrosis US abdomen unremarkable Blood cultures negative; urine culture negative -Will discharge home on oral Levaquin (to cover for CXR with possible bibasilar infiltrates also) Epigastric pain Impression: further history- chronic/intermittent but acutely worse recently. Lipase wnl, mild LFT elevations. suspect gastritis but no alarm features (age < 50, no reported weight loss, bleeding, dysphagia, vomiting, normal abd imaging) . Improved during hospitalization -will discharge home on PPI and H2, 3 day supply of oral opiate, and plan for outpatient GI evaluation Discharge Planning: discharge home today
--- NOTE | 2017-10-14 15:26 | P.DS ---
Date of admission: 10/06/17 16:24 Primary care physician: No Primary Care Physician Brief History from admission: 46-year-old white female with a history of nephrolithiasis presents to the emergency room with worsening 2 day history of left flank pain with radiation towards her left lower abdomen along with symptoms of dysuria. She also reports associated chills or fever. Apparently, patient stated that she was seen at [facility] 2 days ago for the similar symptoms and was prescribed outpatient Keflex which she took 3 doses of this. Despite taking the antibiotics she continues to have persistent fevers and chills along with symptoms of worsening left back and flank pain in which she describes as a sharp stabbing pain with a pain intensity of a 10 out of 10. She also reports symptoms of dysuria. She reports also seeing some hematuria and initially had thought this was kidney stones. She has had previous lithotripsies done in the past. She denies any associated nausea or vomiting. She denies any associated chills or fever. She has not had any unusual vaginal discharge DS: Diagnosis - Discharge Diagnosis (1) Abdominal pain Status: Acute (2) Pyelonephritis Status: Acute DS: Medications - Discharge Medications Prescriptions: levofloxacin [Levaquin] 750 mg PO DAILY #7 tab pantoprazole 40 mg PO DAILY #30 tab ranitidine HCl [Zantac Maximum Strength] 150 mg PO DAILY #30 tab DS: Summary Hospital Course: Mrs. Colunga is a 46-year-old F with PMH of nephrolithiasis who presented with flank, back, abdominal pain and dysuria despite prior antibiotic therapy. Patient met sepsis criteria on admission with HR 115 and WBC 24.3. UA on admission with large leukocytes, elevated WBC, occasional bacteria. CT A/P on admission showed no hydronephrosis; it demonstrated minimal induration of fat in L perinephric space; no evidence calcified stones or hydronephrosis. Patient was empirically treated with Zosyn for suspected pyelonephritis. Patient developed significant epigastric pain during hospitalization; US performed but was unremarkable for new findings. This was suspected due to Toradol causing gastritis; her symptoms improved with Pantoprazole. CXR obtained which showed atelectasis vs infiltrates. Blood and urine cultures were subsequently found to be negative. She was discharged home on Levaquin, Pantoprazole, and H2 with instructions to establish with PCP and see a GI to follow-up. - Time Spent with Patient Total time spent providing and/or coordinating discharge services: Exam Vital signs: T 97.7 HR 72 RR 20 BP 131/88 O2 sat 93% Narrative: Gen: no acute distress Skin: no visible lesions CV: Regular rate and rhythm; grossly normal perfusion Resp: CTAB, normal rate Abd: mild pain to palpation of epigastric area. Normal BS Back: Bilateral CVA tenderness EXT: Grossly normal ROM and motor function Neuro/PSYCH: Grossly normal CN. Grossly normal peripheral sensory/motor function. Results Procedures completed during hospitalization: None - Impressions ITS Impressions Abdomen/Pelvis CT 10/06/17 12:19 CONCLUSION: 1. There is some minimal induration of the fat in the left perinephric space without evidence of calcified stones or hydronephrosis. 2. Otherwise negative CT abdomen/pelvis with contrast. Abdomen Ultrasound 10/07/17 09:38 CONCLUSION: 1. The gallbladder is decompressed but otherwise unremarkable. 2. The liver is unremarkable in appearance with no focal lesion or ascites. Chest X-Ray 10/09/17 07:00 CONCLUSION: Bibasilar atelectasis and/or infiltrates. Clinical correlation is recommended. Discharge Plan - Discharge Disposition Patient Disposition: 01 Discharge Home - Discharge Condition Condition: Stable - Discharge Order Discharge Orders: Discharge Order (Routine); Ordered 10/09/17 Ordered By: Hu Valerio - Discharge Details Anticipated Discharge Date: 10/09/17 - Physicians Team Primary Care Provider: Primary Care Luly Villarreal Attending Provider: Hu Valerio
== END 2017-10-09 17:15 | disposition home or self-care (01) ==
LOC: NEPC 11:47 → NEDA 16:24 → N07 17:23
PROVIDERS: ADMIT Family Medicine; ATTEND Family Medicine